=== PATIENT | female | born 1950 | race Caucasian/White ===

== ENCOUNTER 2017-02-24 09:41 | Emergency (ER) | payer MEDICARE, OTHER ==
[2017-02-24 12:29] VITALS: BP 144/86
--- NOTE | 2017-02-24 15:07 | CT ---
INDICATION: Falls every day, EtOH. CT HEAD WITHOUT CONTRAST: Serial contiguous 2.5 and 5-mm sections were obtained through the brain without contrast, 02/24/2017, and compared with 02/13. Total Exam DLP = 949.36 mGy-cm. Paranasal sinuses and mastoid air cells appear to be fairly well aerated. No definite cranial abnormality was identified. Calcifications are noted in the internal carotid arteries. Mild degenerative changes are noted at the atlantoodontoid joint. The ventricles are moderately prominent, right lateral slightly more prominent than the left lateral, suggesting central atrophy of mild to moderate degree. There is some minimal periventricular white matter change, compatible with a mild degree of microvascular disease. No other abnormal areas of density were identified - no bleeding site or hematoma is seen. Compared with the previous study of 2014, there is a definite increase in size of the ventricles, suggesting progressive atrophy centrally. Sulci appear fairly normal and stable or minimally increased in prominence, compared with the previous study. IMPRESSION: 1. Cerebrovascular disease with mild degree of microvascular disease suggested. Other cause of leukoencephalopathy cannot be excluded. 2. No definite acute intracranial abnormality. 3. Progressive central atrophy. MTDD
--- NOTE | 2017-02-24 15:15 | CT ---
INDICATION: Falls every day, EtOH. CT CERVICAL SPINE: Spiral 2.5-mm axial sections were obtained through the cervical spine without contrast, with sagittal and coronal reconstructions, , and compared with 02/13/2015. Total Exam DLP = 497.72 mGy-cm. Mild degenerative changes are noted at the atlantoodontoid joint. The odontoid, atlas, and axis appear to be intact, however. Vertebral body heights were fairly well maintained with little change compared with the previous examination of 2014. There is degenerative change and disk disease at the C5-6 and slightly lesser extent C6-7 levels, with subchondral cystic changes and sclerosis at those disk spaces. Mild narrowing of the neural foramina is also noted due to hypertrophic spurring, which appears slightly more prominent on the right - slightly more prominent narrowing of the neural foramina on the right at C5-6, C6-7 is noted. Prevertebral space and bone density appear to be normal. An acute fracture or dislocation is not suggested. There is again noted an anterior compression fracture of minimal degree at T1 and T2, which appears stable. These are mostly superior endplate compression fractures with slight anterior loss of volume, mostly at T1. IMPRESSION: Degenerative changes and disk disease as noted above. No acute fracture or dislocation identified. Report was called to Dr. Steen at 1230 hours, 02/24/2017. [facility]
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
== END 2017-02-24 12:45 | disposition home or self-care (01) ==
LOC: FB.ED 09:41
DX: F10.20 Alcohol dependence, uncomplicated (principal); I10 Essential (primary) hypertension; R74.0 Nonspecific elevation of levels of transaminase and lactic acid dehydrogenase [LDH]; F17.210 Nicotine dependence, cigarettes, uncomplicated; Y90.0 Blood alcohol level of less than 20 mg/100 ml
CPT/HCPCS: 36415; 70450; 72125; 80053; 80305; 81001; 85025; 87086; 87088; 87186; 93005; 99285; G0480; 99284